=== PATIENT | female | born 1965 | race Caucasian/White ===

== ENCOUNTER 2016-07-23 12:56 | Emergency (ER) | payer OTHER ==
--- NOTE | 2016-07-23 14:45 | ED CLINICAL REPORT ---
Clinical Report - Physicians/Mid Levels [facility] [address] [place] [address] 07/23/2016 13:00 Patient: MELISSA FLEMING Arrived- By private vehicle. Historian- patient. HISTORY OF PRESENT ILLNESS Chief Complaint: RECTAL BLEEDING. This started today, has been mild and is still present (staying the same). It was abrupt in onset and has been intermittent but is not gone now. The patient has had rectal bleeding (only with wiping after having a BM). She has not had hard stools. No nausea, vomiting, diarrhea or abdominal pain. (Had a colonoscopy with findings of internal hemorrhoids. Reports no other findings.). She has had recent travel. Similar symptoms previously: None. Recent medical care: Not recently seen/assessed. REVIEW OF SYSTEMS No skin rash. All systems otherwise negative, except as recorded above. PAST HISTORY See nurses notes. Problems: no known problems. Medications: Vitamin c Oral. Vitamin D Oral. Multivitamins Oral. PredniSONE Oral. Doxycycline Hyclate Oral. Allergies: Codeine. SOCIAL HISTORY Never smoker. No alcohol use or drug use. FAMILY HISTORY Negative. ADDITIONAL NOTES The nursing notes have been reviewed. PHYSICAL EXAM Vital Signs: 07/23/2016 13:11 BP: 165/82. HR: 100. RR: 16. O2 saturation: 96%. Temp: 99.1 F. Pain level now: 0/10. Blood pressure normal. Oxygen saturation normal. Appearance: Alert. Oriented X3. No acute distress. Eyes: Pupils equal, round and reactive to light. Eyes normal inspection. No pale conjunctivae. ENT: Ears normal. Nose normal. Pharynx normal. Neck: Normal inspection. Neck supple. CVS: Normal heart rate and rhythm. Heart sounds normal. Pulses normal. Respiratory: No respiratory distress. Breath sounds normal. No rales, rhonchi or wheezes. Abdomen: Soft and nontender. Bowel sounds normal. No mass. Back: Normal inspection. Rectal: Rectal exam normal and nontender. Stool color normal. Stool heme negative. (POC test reference range: negative). Skin: Skin warm and dry. Normal skin color. No rash. Normal skin turgor. Extremities: Extremities exhibit normal ROM. No lower extremity edema. LABS, X-RAYS, AND EKG Laboratory Tests: CBC w Diff: (LAZ: 07/23/2016 13:50) ( [employer] 07/23/2016 14:06) Final results Test Result Flag Units (Reference) WHITE BLOOD COUNT 13.5 H K/uL (4.5-11.5) RED BLOOD COUNT 4.74 M/uL (4.00-5.20) HEMOGLOBIN 14.3 gm/dL (12.0-16.0) HEMATOCRIT 42.3 % (36.0-46.0) MEAN CELL VOLUME 89 fL (80-100) MEAN CORPUSCULAR HGB 30 pg (26-34) MEAN CORPUSCULAR HGB CONC 34 g/dL (31-37) RED CELL DISTRIBUTION WIDTH 12.7 % (11.6-14.8) PLATELET COUNT 402 H K/uL (150-400) NEUTROPHIL % 69.0 % (50-75) LYMPH % 24.6 L % (25-40) MONO % 5.2 % (3-14) EOSINOPHIL % 0.4 % (0-4) BASOPHIL % 0.8 % (0-2) PT with INR: (LAZ: 07/23/2016 13:50) ( [employer] 07/23/2016 14:13) Final results Test Result Flag Units (Reference) INR 0.9 (0.8-1.2) Low Intensity Therapy: INR 1.5-2.0 PT range 18.5-23.1Mod.Intensity Therapy: INR 2.0-3.0 PT range 23.1-31.5High Intensity Therapy: INR 2.5-3.5 PT range 27.4-35.5High Intensity Therapy 2: INR 3.0-4.0 PT range 31.5-39.3 APTT 24 SECONDS (24-34) CMP: (LAZ: 07/23/2016 13:50) ( [facility] 07/23/2016 14:14) Final results Test Result Flag Units (Reference) GLUCOSE 173 H mg/dL (70-110) BUN 13 mg/dL (7-18) CREATININE 0.9 mg/dL (0.6-1.3) Estimated GFR >60 mL/min Estimated GFR- >60 mL/min Note: Persistent reduction over 3 months in eGFR<60 mL/min/1.73 m2 defines CKD. Patients with eGFR values>=60 mL/min/1.73 m2 may also have CKD if evidence ofpersistent proteinuria. Additional information may be foundat www.[email or web address].org. SODIUM 141 mmol/L (136-145) POTASSIUM 3.3 L mmol/L (3.5-5.1) CHLORIDE 104 mmol/L (98-107) CARBON DIOXIDE 28 mmol/L (21-32) CALCIUM 8.4 L mg/dL (8.5-10.1) TOTAL PROTEIN 6.9 g/dL (6.4-8.2) ALBUMIN 3.3 g/dL (3.3-5.0) BILIRUBIN, TOTAL 0.5 mg/dL (0.0-1.0) ALKALINE PHOSPHATASE 86 U/L (46-116) AST (SGOT) 32 U/L (15-37) ALT (SGPT) 88 H U/L (12-78) . PROGRESS AND PROCEDURES Course of Care: the patient is a pleasant 51-year-old female with past medical history significant for internal hemorrhoids presenting for evaluation of rectal bleeding. Patient has minor bleeding on history. Patient states that she has only been bleeding with wiping. The patient is a physical exam findings of anemia. Blood pressures been normal here in the emergency department. Patient is not tachycardic. Patient is resting in bed and in no acute distress. Patient reports that she's never had symptoms like this before in the past and was worried. Patient will be evaluated for GI bleed. Patient otherwise is in no acute distress. Patient is agreeable to the treatment plan. Workup does not show any acute abnormalities. Hemoglobin and hematocrit are within normal limits. Patient's white blood cell count is slightly elevated at 13.5. Patient's liver enzymes are slightly elevated only at 88. With the upper limit of normal being 78. I feel that this is significant at this time. I discussion with patient in regards to minor GI bleeding here in the emergency department and wnt. Patient is stable for outpatient management. Patient is reliable and in no acute distress. Patient continues to be nontoxic and has been stable throughout her stay here in the emergency department. Do not feel patient needs to admitted to the hospital require further emergency department workup. Discussed with patient workup, diagnosis, home care, follow-up, and return precautions. All questions answered. The patient expressed understanding of these instructions and was agreeable to them. Disposition: Discharged. Condition: good. CLINICAL IMPRESSION 07/23/2016 13:11 BP: 165/82. HR: 100. RR: 16. O2 saturation: 96%. Temp: 99.1 F. Pain level now: 0/10. Blood pressure normal. Oxygen saturation normal. Rectal bleed consisting of bright red blood from internal hemorrhoids (acute). Hypokalemia (acute mild). INSTRUCTIONS (Please follow the diet recommendations for low potassium). Warnings: GENERAL WARNINGS: Return or contact your physician immediately if your condition worsens or changes unexpectedly, if not improving as expected, or if other problems arise. Specifically return if pain, vomiting, bleeding, breathing difficulty or fever. Your Current Medications: CONTINUE TAKING THE FOLLOWING MEDICATIONS: Doxycycline Hyclate Oral. Multivitamins Oral. PredniSONE Oral. Vitamin c Oral. Vitamin D Oral. OTC Medications: Tylenol (available over the counter): take according to label instructions. Motrin (available over the counter): take according to label instructions. Follow-up: Return to the emergency department as needed. Follow up with your doctor in three days. Reason for referral: recheck today's concern. Summary of care provided to patient via paper. Screening today revealed the patient's blood pressure to be in the normal range. The patient should follow up with a primary care provider for blood pressure management. Understanding of the discharge instructions verbalized by patient. (Electronically signed by Jann Delgado Dr. 07/24/2016 18:29)
--- NOTE | 2016-07-23 14:45 | ED NURSING NOTES ---
Clinical Report - [facility] [address] [place] [address] 07/23/2016 13:00 Patient: MELISSA FLEMING TRIAGE Triage time 1311 PM. Chief Complaint: RECTAL BLEEDING (hx on internal hemorrhoid). Alert. No acute distress. --13:18 Richy Hooper R.N. 13:11 07/23/16. BP: 165/82. HR: 100. RR: 16. O2 saturation: 96%. Temp: 99.1 F (oral). Pain level now: 0/10. --13:18 Richy Hooper R.N. Weight: 88.4 kg stated. Height/Length: 65 inches Per Patient. BMI: 32.5. --13:16 Richy Hooper R.N. Medications Doxycycline Hyclate Oral. --13:15 Richy Hooper R.N. PredniSONE Oral. --13:16 Richy Hooper R.N. Multivitamins Oral. --13:16 Richy Hooper R.N. Vitamin D Oral. --13:16 Richy Hooper R.N. Vitamin c Oral. --13:16 Richy Hooper R.N. Allergies Codeine. --13:15 Richy Hooper R.N. History Arrived by private vehicle. Historian: patient. Accompanied by family. Primary physician ([facility]). This started last night. This is a new problem. ( Patient presents to the ED with symptoms of dark red blood in her stool beginning last night. Patient states that she had a colonoscopy last year and was told that she has an internal hemorrhoid. Patient also states that she has had a respiratory infection for the entire month of June and has been treated with a course of Augementin and her Physician at the [facility] just started on Doxycycline and Prednisone yesterday.). Last oral intake by patient was breakfast 3 hours ago. 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 SOCIAL HX: Never smoker. Occasional alcohol use. History of drug use. (no). Has had symptoms of fever. FALL RISK ASSESSMENT: Fall risk assessment completed. No fall risk identified. NUTRITIONAL RISK ASSESSMENT: The nutritional risk assessment revealed no deficiencies. FUNCTIONAL ASSESSMENT: Functional assessment: no impairments noted. LEARNING NEEDS ASSESSMENT: The learning needs assessment revealed no barriers. SKIN INTEGRITY ASSESSMENT: Skin integrity risk assessment completed. No skin integrity risk identified. --13:18 Richy Hooper R.N. PROBLEMS: no known problems. ADDITIONAL SURGERIES: Ectopic . Sinus Surgery. Tubal Ligation. --13:17 Richy Hooper R.N. Interventions ID band on patient. --13:18 Richy Hooper R.N. PHYSICAL ASSESSMENT Ambulatory to room. GENERAL / NEURO / PSYCH: Alert. Oriented X 4. Appears in no acute distress. HEENT: Mucous membranes are pink. RESPIRATORY: Respirations not labored. Breath sounds within normal limits. CVS: Normal sinus rhythm noted. Capillary refill less than 2 seconds. GI / : Abdomen soft and nontender. Bowel sounds within normal limits. Blood present in the stool, as blood streaks. SKIN: Skin is warm and dry. --13:18 Richy Hooper R.N. NURSING PROGRESS NOTES Call light placed in reach. Side rails up x 1. Bed placed in lowest position. Brakes of bed on. --13:18 Richy Hooper R.N. Checked patient name and birthdate: patient confirmed. Blood samples drawn from the left antecubital space with syringe and 23g butterfly by [employer] per protocol ; labeled in presence of the patient and sent to lab: rainbow set: cardiac enzymes (1st set). --13:56 Miguelangel George. DISPOSITION / DISCHARGE Departure time: 14:54. No learning barriers present. Discharge instructions provided and reviewed with the patient. Patient verbalized understanding. Written instructions provided in Tajik. The patient was discharged home. She left the Emergency Department ambulatory and via private vehicle. Patient driving. --14:54 Margaret Craven R.N. 14:55 07/23/16. BP: 144/77. HR: 83. RR: 18. O2 saturation: 95%. Pain level now 0/10. --14:56 Margaret Craven R.N. Locked/Released at 07/23/2016 23:41 by Richy Hooper R.N.
--- NOTE | 2016-07-23 14:45 | ED ORDER SUMMARY ---
..... Patient: MELISSA FLEMING OrderSheet [facility] VisitID: [id number] [place] [address] 51y, F Registration Date/Time: 07/23/2016 ORDER SHEET Weight: 88.4 kg (stated) Allergies: Codeine GENERAL ORDERS: CBC w Diff Urgent (13:41 07/23/2016 Raleigh Zhu) (Ack 13:47 Rona) (13:56 LTapper) CMP Urgent (13:41 07/23/2016 Raleigh Zhu) (Ack 13:47 Rona) (13:56 LTapper) PT with INR Urgent (13:41 07/23/2016 Raleigh Zhu) (Ack 13:47 Rona) (13:56 LTapper) PTT Urgent (13:41 07/23/2016 Raleigh Zhu) (Ack 13:47 Rona) (13:56 LTapper) MEDICATION ORDERS: IV FLUIDS: ORDER SHEET NOTES: [Electronically signed by Richy Hooper R.N. (23:41 07/23/2016)] [Electronically signed by Jann Delgado Dr. (18:29 07/24/2016)] [Electronically locked/signed by Richy Hooper R.N. (23:41 07/23/2016)]
--- NOTE | 2016-07-23 14:45 | ED ORDER SUMMARY ---
..... Patient: MELISSA FLEMING OrderSheet VisitID: [id number] [place] [address] 51y, F Registration Date/Time: 07/23/2016 ORDER SHEET Weight: 88.4 kg (stated) Allergies: Codeine GENERAL ORDERS: CBC w Diff Urgent (13:41 07/23/2016 Raleigh Zhu) (Ack 13:47 Rona) (13:56 LTapper) CMP Urgent (13:41 07/23/2016 Raleigh Zhu) (Ack 13:47 Rona) (13:56 LTapper) PT with INR Urgent (13:41 07/23/2016 Raleigh Zhu) (Ack 13:47 Rona) (13:56 LTapper) PTT Urgent (13:41 07/23/2016 Raleigh Zhu) (Ack 13:47 Rona) (13:56 LTapper) MEDICATION ORDERS: IV FLUIDS: ORDER SHEET NOTES: [Electronically signed by Richy Hooper R.N. (23:41 07/23/2016)] [Electronically signed by Jann Delgado Dr. (18:29 07/24/2016)] [Electronically locked/signed by Richy Hooper R.N. (23:41 07/23/2016)]
--- NOTE | 2016-07-23 14:45 | ED NURSING NOTES ---
Clinical Report - Nurses [facility] [address] [place] [address] 07/23/2016 13:00 Patient: MELISSA FLEMING TRIAGE Triage time 1311 PM. Chief Complaint: RECTAL BLEEDING (hx on internal hemorrhoid). Alert. No acute distress. --13:18 Richy Hooper R.N. 13:11 07/23/16. BP: 165/82. HR: 100. RR: 16. O2 saturation: 96%. Temp: 99.1 F (oral). Pain level now: 0/10. --13:18 Richy Hooper R.N. Weight: 88.4 kg stated. Height/Length: 65 inches Per Patient. BMI: 32.5. --13:16 Richy Hooper R.N. Medications Doxycycline Hyclate Oral. --13:15 Richy Hooper R.N. PredniSONE Oral. --13:16 Richy Hooper R.N. Multivitamins Oral. --13:16 Richy Hooper R.N. Vitamin D Oral. --13:16 Richy Hooper R.N. Vitamin c Oral. --13:16 Richy Hooper R.N. Allergies Codeine. --13:15 Richy Hooper R.N. History Arrived by private vehicle. Historian: patient. Accompanied by family. Primary physician ([facility] [place]). This started last night. This is a new problem. ( Patient presents to the ED with symptoms of dark red blood in her stool beginning last night. Patient states that she had a colonoscopy last year and was told that she has an internal hemorrhoid. Patient also states that she has had a respiratory infection for the entire month of June and has been treated with a course of Augementin and her Physician at the [facility] [place] just started on Doxycycline and Prednisone yesterday.). Last oral intake by patient was breakfast 3 hours ago. 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 SOCIAL HX: Never smoker. Occasional alcohol use. History of drug use. (no). Has had symptoms of fever. FALL RISK ASSESSMENT: Fall risk assessment completed. No fall risk identified. NUTRITIONAL RISK ASSESSMENT: The nutritional risk assessment revealed no deficiencies. FUNCTIONAL ASSESSMENT: Functional assessment: no impairments noted. LEARNING NEEDS ASSESSMENT: The learning needs assessment revealed no barriers. SKIN INTEGRITY ASSESSMENT: Skin integrity risk assessment completed. No skin integrity risk identified. --13:18 Richy Hooper R.N. PROBLEMS: no known problems. ADDITIONAL SURGERIES: Ectopic . Sinus Surgery. Tubal Ligation. --13:17 Richy Hooper R.N. Interventions ID band on patient. --13:18 Richy Hooper R.N. PHYSICAL ASSESSMENT Ambulatory to room. GENERAL / NEURO / PSYCH: Alert. Oriented X 4. Appears in no acute distress. HEENT: Mucous membranes are pink. RESPIRATORY: Respirations not labored. Breath sounds within normal limits. CVS: Normal sinus rhythm noted. Capillary refill less than 2 seconds. GI / : Abdomen soft and nontender. Bowel sounds within normal limits. Blood present in the stool, as blood streaks. SKIN: Skin is warm and dry. --13:18 Richy Hooper R.N. NURSING PROGRESS NOTES Call light placed in reach. Side rails up x 1. Bed placed in lowest position. Brakes of bed on. --13:18 Richy Hooper R.N. Checked patient name and birthdate: patient confirmed. Blood samples drawn from the left antecubital space with syringe and 23g butterfly by [employer] per protocol ; labeled in presence of the patient and sent to lab: rainbow set: cardiac enzymes (1st set). --13:56 Miguelangel George. DISPOSITION / DISCHARGE Departure time: 14:54. No learning barriers present. Discharge instructions provided and reviewed with the patient. Patient verbalized understanding. Written instructions provided in Persian. The patient was discharged home. She left the Emergency Department ambulatory and via private vehicle. Patient driving. --14:54 Margaret Craven R.N. 14:55 07/23/16. BP: 144/77. HR: 83. RR: 18. O2 saturation: 95%. Pain level now 0/10. --14:56 Margaret Craven R.N. Locked/Released at 07/23/2016 23:41 by Richy Hooper R.N.
--- NOTE | 2016-07-24 18:30 | ED MED RECONCILIATION SUMMARY ---
Patient: MELISSA FLEMING Medication Reconciliation Report [facility] VisitID: [id number] [address] [place] [address] 51y, F Registration Date/Time: 07/23/2016 Weight: 88.4 kg Height/Length: 65 in. BMI: 32.5 ALLERGIES: Codeine The patient's Home Medications are listed below: CONTINUE TAKING THE FOLLOWING MEDICATIONS: Doxycycline Hyclate Oral Multivitamins Oral PredniSONE Oral Vitamin c Oral Vitamin D Oral The source(s) of the original Home Medication information: Not obtained. The following Medications were given to the patient in the Emergency Department: None. The following Medications were prescribed to the patient: Tylenol (available over the counter): take according to label instructions. -- Jann Delgado Dr. Motyesi (available over the counter): take according to label instructions. -- Jann Delgado Dr.
--- NOTE | 2016-07-24 18:30 | ED MED RECONCILIATION SUMMARY ---
Patient: MELISSA FLEMING Medication Reconciliation Report [facility] VisitID: [id number] [address] [place] [address] 51y, F Registration Date/Time: 07/23/2016 Weight: 88.4 kg Height/Length: 65 in. BMI: 32.5 ALLERGIES: Codeine The patient's Home Medications are listed below: CONTINUE TAKING THE FOLLOWING MEDICATIONS: Doxycycline Hyclate Oral Multivitamins Oral PredniSONE Oral Vitamin c Oral Vitamin D Oral The source(s) of the original Home Medication information: Not obtained. The following Medications were given to the patient in the Emergency Department: None. The following Medications were prescribed to the patient: Tylenol (available over the counter): take according to label instructions. -- Jann Delgado Dr. Motyesi (available over the counter): take according to label instructions. -- Jann Delgado Dr.
--- NOTE | 2016-07-24 18:30 | ED MAR SUMMARY ---
..... Medication Administration Record [facility] [address] [place], [place] [id number] Patient: MELISSA FLEMING Visit ID: [id number] 51y, F Weight: 88.4 kg Height/Length: 65 in BMI: 32.5 ALLERGIES: Codeine
--- NOTE | 2016-07-24 18:30 | ED MAR SUMMARY ---
..... Medication Administration Record [facility] [address] [place], [place] [id number] Patient: MELISSA FLEMING Visit ID: [id number] 51y, F Weight: 88.4 kg Height/Length: 65 in BMI: 32.5 ALLERGIES: Codeine
--- NOTE | 2016-07-24 18:30 | ED DISCHARGE INSTRUCTIONS ---
Patient: MELISSA FLEMING General Instructions [facility] VisitID: [id number] [place] [address] 51y, F Registration Date/Time: 07/23/2016 07/23/2016 13:11 BP: 165/82. HR: 100. RR: 16. O2 saturation: 96%. Temp: 99.1 F. Pain level now: 0/10. Blood pressure normal. Oxygen saturation normal. Rectal bleed consisting of bright red blood from internal hemorrhoids (acute). Hypokalemia (acute mild). INSTRUCTIONS (Please follow the diet recommendations for low potassium). Warnings: GENERAL WARNINGS: Return or contact your physician immediately if your condition worsens or changes unexpectedly, if not improving as expected, or if other problems arise. Specifically return if pain, vomiting, bleeding, breathing difficulty or fever. Your Current Medications: CONTINUE TAKING THE FOLLOWING MEDICATIONS: Doxycycline Hyclate Oral. Multivitamins Oral. PredniSONE Oral. Vitamin c Oral. Vitamin D Oral. OTC Medications: Tylenol (available over the counter): take according to label instructions. Motrin (available over the counter): take according to label instructions. Follow-up: Return to the emergency department as needed. Follow up with your doctor in three days. Reason for referral: recheck today's concern. Summary of care provided to patient via paper. Screening today revealed the patient's blood pressure to be in the normal range. The patient should follow up with a primary care provider for blood pressure management. Understanding of the discharge instructions verbalized by patient. ADDITIONAL INFORMATION Rectal Bleeding (Stable) Your exam today shows signs of blood in the stool. This is called rectal bleeding, because the blood passes through the rectum. However, the blood may not be coming from the rectum. Blood in the stool may be red or black in color. Red blood in the stool usually comes from the lower gastro-intestinal (GI) tract. This may be due to diverticulosis, polyps, colon inflammation or infection, anal fissure or hemorrhoids. In persons over 50 tumors and cancer of the intestinal tract may first show up as red blood in the stool. Upper GI bleeding causes the stool to turn black. This may occur with bleeding from the esophagus, stomach, duodenum or small intestine. Very small amounts of GI bleeding may not be visible and can only be discovered on a chemical test of the stool. You have not lost a large amount of blood and your condition appears stable at this time. It is very important to have a follow-up exam to determine the exact cause of your bleeding. Home Care: 1) You may resume normal activity as long as you feel well. 2) Avoid aspirin and anti-inflammatory drugs such as ibuprofen (Advil, Motrin) and naproxen (Aleve and Naprosyn). You may use acetaminophen (Tylenol) for pain. [ NOTE : If you have chronic liver disease, talk with your doctor before using acetaminophen.] 3) Avoid alcohol. Follow Up with your doctor or as advised by our medical staff. It is very important that you have further tests done to find the cause of your bleeding. Get Prompt Medical Attention if any of the following occur: -- Large amount of rectal bleeding (more than 1 cup of blood in 24 hours) -- Increasing abdominal pain -- Weakness, dizziness or fainting -- Vomiting blood (red or black color) Hypokalemia Hypokalemia means a low level of potassium in the blood. This most often occurs in patients who take diuretics (water pills). It can also occur due to severe vomiting or diarrhea. A mild case usually causes no symptoms. It is only found with blood testing. More severe potassium loss causes generalized weakness, muscle or abdominal cramping, heart palpitations (rapid or irregular heartbeats) and low blood pressure. Home Care: 1) Take any potassium supplements prescribed. 2) Eat foods rich in potassium. The highest amount is found in artichoke, baked potatoes, spinach, cantaloupe, honeydew melon, cod, halibut, salmon, and scallops. White, red, or turner beans are also very good sources. A modest amount is found in orange juice, bananas, carrots, and tomato juice. 3) Certain types of diuretics (water pills), such as Lasix (furosemide), require that you take potassium supplements for as long as you take the diuretic pills. If you are taking a diuretic, discuss the need for potassium supplements with your doctor. Follow Up with your doctor for a repeat blood test within the next week or as advised by our staff. Get Prompt Medical Attention if any of the following occur: -- Increased weakness -- Feeling dizzy -- Irregular heartbeat, extra beats or very fast heart rate -- Fainting spell You have been given the following additional information: Rectal Bleed, Stable Hypokalemia (Electronically signed by Jann Delgado Dr. 07/24/2016 18:29)
== END 2016-07-23 14:54 | disposition home or self-care (01) ==
LOC: ED SRH 12:56
DX: K64.8 Other hemorrhoids (principal); E87.6 Hypokalemia; Z79.52 Long term (current) use of systemic steroids; Z88.5 Allergy status to narcotic agent
CPT/HCPCS: 90074; 90100; 94001; 94060; 95059